=== PATIENT | male | born 1995 | race Caucasian/White ===

== ENCOUNTER 2021-08-23 15:14 | Emergency (ER) | payer BC ==
[2021-08-23] MEDS ORDERED: Sodium Chloride 0.9% 10 ML Syringe FLUSH PRN (15:21)
[2021-08-23] MEDS ORDERED: Aspirin 81 MG Tab.Chew PO ONE (15:22)
[2021-08-23] MEDS ORDERED: Metoprolol Tartrate 5 MG/5 ML SDV IVPUSH ONE (15:50)
[2021-08-23 15:59] LABS: PTT,PARTIAL THROMBOPLSTIN TIME 25.5 SEC (20.5-30.9)
[2021-08-23 16:07] LABS: CHLORIDE,CL 101 mmol/L (98-107); SODIUM,NA 136 mmol/L (136-145)
[2021-08-23 16:11] LABS: ANION GAP 13.6 mmol/L (5-15)
[2021-08-23] MEDS ORDERED: Metoprolol Tartrate 50 MG Tab PO ONE (17:11)
== END 2021-08-23 17:30 | disposition home or self-care (01) ==
LOC: VM.ED 15:14
DX: R07.89 Other chest pain (principal); F10.10 Alcohol abuse, uncomplicated; I10 Essential (primary) hypertension
CPT/HCPCS: 71045; 80053; 83735; 83880; 84100; 84443; 84484; 85025; 85379; 85610; 85730; 86140; 93005; 96374; 99285; A9270; J3490